=== PATIENT | female | born 1980 ===

== ENCOUNTER 2024-12-19 10:15 | Inpatient (IN) | payer OTHER ==
[~2024-12-19] VITALS: Ht 157.5 cm; Wt 62.6 kg
[2024-12-19 11:34] VITALS: BP 133/91
[2024-12-24] MEDS ORDERED: CEFAZOLIN SODIUM 1,000 MG VIAL ONE (07:04)
[2024-12-24] MEDS ORDERED: POVIDONE-IODINE 118 ML BOTT TOP ONE (07:12)
[2024-12-24] MEDS ORDERED: SUGAMMADEX SODIUM 200 MG/2 ML VIAL IV ONE (08:46)
[2024-12-24] MEDS ORDERED: MORPHINE SULFATE 4 MG/ML CARTRIDGE IV SCH (09:14)
[2024-12-24] MEDS ORDERED: PROMETHAZINE HCL 50 MG/ML AMPUL IM ONE (11:45)
[2024-12-24] MEDS ORDERED: PROMETHAZINE HCL 25 MG/ML AMPUL IV SCH (12:00)
[2024-12-24 13:16] VITALS: BP 118/73
[2024-12-24 16:11] VITALS: BP 107/69
[2024-12-24 17:50] LABS: BASO % 0.1 % (0.1-1.2); EOS # 0.00 (0.04-0.54); EOS % 0.0 % (0.7-7.0); LYMPH # 0.64 (1.18-3.74); LYMPH % 5.8 % (19.3-53.1); MEAN PLATELET VOLUME 10.30 fl (9.4-12.4); MONO # 0.62 (0.24-0.82); MONO % 5.7 % (4.7-12.5); NEUT # 9.65 (1.56-6.13); NEUT % 88.1 % (34.0-71.1); RED CELL DISTRIBUTION WIDTH 12.1 % (11.6-14.4)
[2024-12-24 21:37] VITALS: BP 118/74
[2024-12-25 00:04] VITALS: BP 122/79
[2024-12-25 05:00] VITALS: BP 143/87
[2024-12-25] MEDS ORDERED: GABAPENTIN 600 MG TABLET PO SCH (05:00)
[2024-12-25] MEDS ORDERED: SIMETHICONE 125 MG CAPSULE PO SCH (05:00)
[2024-12-25] MEDS ORDERED: KETOROLAC TROMETHAMINE 60 MG VIAL IM ONE (07:00)
[2024-12-25] MEDS ORDERED: KETOROLAC TROMETHAMINE 60 MG VIAL IM NR (07:40)
[2024-12-25 08:08] VITALS: BP 126/87
[2024-12-25 16:27] VITALS: BP 120/76
[2024-12-25 20:50] VITALS: BP 132/85
[2024-12-26] VITALS: BP 110/74
[2024-12-26] MEDS ORDERED: IBUPROFEN800 MG PO (06:34)
[2024-12-26] MEDS ORDERED: NEURONTIN600 MG PO (06:34)
[2024-12-26] MEDS ORDERED: SIMETHICONE125 M1 PO (06:35)
[2024-12-26 08:01] VITALS: BP 116/80
== END 2024-12-26 08:41 | disposition home or self-care (01) | DRG 743 ==
LOC: OB/GYN 12-24 06:00 → O/R 12-24 06:00 → SURH 12-24 07:00 → OB/GYN 12-24 10:53
PROVIDERS: ADMIT Obstetrics & Gynecology; ATTEND Obstetrics & Gynecology
PROC: 0UT90ZZ Resection of Uterus, Open Approach (ICD-10-PCS; principal; 2024-12-24 07:00)
DX: D25.1 Intramural leiomyoma of uterus (principal); D25.2 Subserosal leiomyoma of uterus; D25.0 Submucous leiomyoma of uterus; N72 Inflammatory disease of cervix uteri